=== PATIENT | female | born 1940 | race Caucasian/White ===

== ENCOUNTER → 2017-01-05 | Outpatient (CLI) | payer OTHER ==
[~2017-01-05] MED LIST: ALBU18002 INH; ALBU1AER9 INH; ASPI325T45 PO; ATOR10TA82 PO; B-CO1CAP17 PO; BTH25 PO; CHOL2000 PO; CHOL20009 PO; CLC6 PO; GABA-113 PO; HYDR-5688 PO; IBUP-1050 PO; NORT25CA PO; ONDA4TAB10 SL; ONDA4TAB46 PO; PRED-301 PO; RST/30 PO; SYMIN160 INH; TRAM-10 PO
== END | disposition home or self-care (01) ==
LOC: C.RDSM 07:35
PROVIDERS: ATTEND Physical Medicine & Rehabilitation Sports Medicine
DX: M65.342 Trigger finger, left ring finger (principal)

== ENCOUNTER → 2017-01-28 | Day surgery (SDC) | payer OTHER ==
[2017-01-12 12:38] VITALS: Ht 149.9 cm; Wt 66.4 kg
[~2017-01-28] VITALS: Ht 149.9 cm; Wt 66.4 kg
[~2017-01-28] MED LIST changes: -ALBU1AER9 INH; -ASPI325T45 PO; +ATROPINE SULFATE 0.1 MG/ML 5ML SYR IV PRN; +BUPIVACAINE/EPINEPHRINE 0.5% MPF 1:200,000 30 ML VIAL ONE; +CEFAZOLIN 1000MG/55 ML D5W IV SCH; -CHOL2000 PO; +EpHEDrine SULFATE INJ 50 MG/ML AMP IV PRN; +FENTANYL CITRATE INJ 50 MCG/1 ML 2 ML VIAL IV PRN; -GABA-113 PO; +HYDROCODONE/ACETAMOPHEN 5/325MG TAB PO PRN; +HYDROCORTISONE SOD SUCCINATE 100 MG/2 ML VIAL ONE; -IBUP-1050 PO; +LACTATED RINGER'S 1000ML 1,000 ML IV SCH; +LIDOCAINE HCL 1% 20 ML VIAL ONE; +LIDOCAINE/EPINEPHRINE 1% INJ 50 ML VIAL ONE; +MIDAZOLAM HCL 1 MG/ML 2ML VIAL ONE; -NORT25CA PO; -ONDA4TAB46 PO; +ONDANSETRON INJ 2 MG/ML 2 ML VIAL IV PRN; +PROPOFOL IV EMULSION 10 MG/ML 20 ML VIAL IV ONE; +SODIUM CHLORIDE 0.9% 1000ML 1,000 ML IV SCH; +TRAMADOL HCL 50 MG TAB PO PRN
--- NOTE | 2017-01-28 06:45 | History & Physical Bridge Note ---
H&P Re-Evaluation Bridge Note: I have examined the patient, reviewed the History & Physical and in the interval since the performance of the History & Physical I have noted the following changes of clinical significance: No changes noted
--- NOTE | 2017-01-28 07:15 | Discharge Instructions-SurgCtr ---
Discharge Instructions Date of Service January 28, 2017. Visit Reason for Visit: Left Ring Finger Trigger Digit Discharge Discharge Diagnosis / Problem: Left ring finger trigger digit Discharge Goals Goal(s): Decrease discomfort, Improve function, Increase independence Activity Recommendations Activity Limitations: per Instructions/Follow-up section Anesthesia . Post Anesthesia Instructions: If you have had General Anesthesia or IV Sedation: * Do not drive today. * Resume driving when surgeon permits. * Do not make important decisions or sign legal documents today. * Call surgeon for: 1. Temperature elevations greater than 101 degrees F. 2. Uncontrollable pain. 3. Excessive bleeding. 4. Persistent nausea and vomiting. 5. Medication intolerance (nausea, vomiting or rash). * For nausea and vomiting use only clear liquids such as: tea, soda, bouillon until nausea subsides, then gradually increase diet as tolerated. * If you have any concerns or questions, call your surgeon's office. If physician is unavailable and it is an emergency, call 911 or go to the nearest emergency room. . Instructions / Follow-Up Instructions / Follow-Up The following are instructions to follow after minor hand surgery. ACTIVITY RECOMMENDATIONS: * Minimize activity until your first visit after surgery. * No excessive walking, jogging, sports or laboring. * Return to activity is individualized. Most patients are able to return to everyday activities within 2 weeks. * Return to sports or intensive labor usually occurs at 1-2 months. * DRIVING: Driving may be resumed when you feel you have adequate pain control and use of the hand. * BATHING: You may shower or sponge-bathe immediately after surgery. The dressing will need to be covered with a plastic bag or plastic wrap until the dressing is changed on the fourth or fifth day after surgery. Once the dressing has been changed on the fourth or fifth day after surgery, you may shower and get the incision wet. * Wash with regular soap and water. * Do not bathe (submerge the incision), soak, swim or use a hot tub until the incision is completely healed over with normal skin and the doctor has given the OK to proceed. * There is no need to apply any ointments, powders or salves to your incision. * Do not apply alcohol or hydrogen peroxide directly to the incision. Diluted peroxide (50:50 mixture with sterile saline) may be used to clean dried blood from around the incision area. WORK/SCHOOL: * You may return to sedentary work or school when you are feeling comfortable. This is usually 3-7 days after surgery. * Expect increased discomfort with increased activity. Continue to elevate and ice the hand as much as possible. DIET: * Resume previous diet. MEDICATIONS: * You will have a prescription for pain medication and an anti-inflammatory medication after surgery. Use the pain pills for severe pain and the anti-inflammatory for less severe pain. * Once the pain pills have run out, try to use the anti-inflammatory. If this is not effective then contact the office for assistance. * The pain medication may cause nausea, constipation and sleepiness. You should see how they affect you before driving or similar activity. * The anti-inflammatory may cause stomach upset and bleeding. If this occurs, let your doctor know immediately . * Some patients may need blood clot prevention. This can be done with either a pill or a simple shot. Your doctor will advise you on when to begin these medications and how to take them. * Do not take aspirin or other anti-inflammatory products (i.e. Advil or Aleve ) if taking blood thinner medication. * Take a stool softener like Colace or a stimulant like Senokot to prevent constipation. SPECIAL CARE INSTRUCTIONS: ICE: * Do not apply ice directly to the skin. * Use a thin dressing or stockinet between the skin and ice bag. The dressing in place after surgery will suffice. * Apply ice for 20-30 minutes and repeat every 2-4 hours. This is especially important for the first 3-7 days after surgery. * Once the pain improves, use ice as needed. ELEVATION: * Keep your hand elevated at or above the level of your heart as much as possible. * Expect some increased discomfort and swelling if you allow your hand to hang down for any length of time. DRESSING: * Your dressing will be changed 4-5 days after surgery by the physical therapist or physician's patient assistant. Leave your dressing intact until this time. * You may then change your dressing daily with clean dry gauze or Band-aids and a soft wrap or stockinet. * Always wash your hands prior to touching the incision area. * Once the stitches are removed, you may leave the wound open to air or cover with a thin bandage. * There is no need to apply any ointments, powders or salves to your incision. * Expect some bloody drainage for the first few days after surgery. * Leave the tape strips in place (if present) for 5-7 days. * The initial dressing after surgery may become soaked with blood or fluid which is normal. You may reinforce your dressing with clean, dry gauze as needed. BRACE: * Bracing is generally not needed after routine hand surgery. THERAPY: * Physical therapy may be prescribed after your surgery. * For carpal tunnel and trigger digit surgery you may begin moving your fingers and wrist immediately after surgery as tolerated. * Be careful to not overuse. * Once the sutures are removed, further range of motion exercises can be performed. * Hand incisions may be very sensitive for a few months after surgery so avoid excessive pressure on the incision. If necessary, use a padded weightlifters' glove. * You may massage the incision with skin cream to make it less sensitive and reduce scarring. * Hand strength usually returns with normal use. * If needed, squeezing a soft sponge or Play-dough may help. * Your doctor will recommend physical therapy if necessary. PROBLEMS/QUESTIONS: * If you have any problems such as severe pain, numbness, tingling or high fevers or if you have any questions, please contact the office at [phone]. * It is not uncommon to have some numbness and tingling after the surgery especially if you have had a nerve block done. This should gradually improve over the first 1- 2 days. If this persists longer or worsens then contact the office. FOLLOW UP VISIT: * If not already scheduled, please call the office at to schedule follow-up appointments for approximately 10 days, 6 weeks and 3 months after surgery. * You have a follow up appointment on 02/02/17 at 9:00 a.m. at [facility]. * You have a follow up appointment with Dr. Levin on 02/10/17 at 1:00 p.m. Diet Recommendations Home Diet: no limitations, resume previous diet Pending Studies Studies pending at discharge: no Medical Emergencies . Who to Call and When: Medical Emergencies: If at any time you feel your situation is an emergency, please call 911 immediately. . Non-Emergent Contact Non-Emergency issues call your: Surgeon Call Non-Emergent contact if: temperature is above 101, your pain is not controlled, your pain is concerning you, wound has increased drainage, you have any medication questions . . "Provider Documentation" section prepared by Betzy Pollard. . [place] Drug Monitoring Program Search Results: patient reviewed within database, no issues identified
--- NOTE | 2017-01-28 07:34 | [facility] Post Operative Brief Note ---
Immediate Operative Summary Operative Date January 28, 2017. Pre-Operative Diagnosis Left Trigger Finger Digit Post-Operative Diagnosis Same Procedure(s) Performed Left Ring Trigger Digit Release Surgeon Dr. Collette Levin After School Counselor Surgeon(s) May Mcnulty Estimated Blood Loss 0 Findings fraying of superficialis tendon Specimens None Drains 0 Anesthesia local with IV sedation Complication(s) None Disposition Recovery Room / PACU
[2017-01-28 07:35] VITALS: TEMP 36.3
--- NOTE | 2017-01-28 08:07 | Anesthesia Progress Nt - [facility] ---
Anesthesia Post Op Note Date & Time January 28, 2017 at 08:08 Vital Signs Pain Intensity: 0 Vital Signs Past 12 Hours Date Time Temp Pulse Resp B/P Pulse Ox O2 Delivery O2 Flow Rate FiO2 01/28/17 07:35 36.3 81 16 112/73 97 Room Air 01/28/17 06:24 36.4 69 16 148/70 97 Room Air Notes Mental Status: alert / awake / arousable, participated in evaluation Pt Amnestic to Procedure: Yes Nausea / Vomiting: adequately controlled Pain: adequately controlled Airway Patency, RR, SpO2: stable & adequate BP & HR: stable & adequate Hydration State: stable & adequate Anesthetic Complications: no major complications apparent
[2017-01-28 08:11] VITALS: BP 138/68; PULSE 71; O2SAT 98
--- NOTE | 2017-01-28 08:23 | OPERATIVE REPORT ---
DATE OF OPERATION: 01/28/2017 PREOPERATIVE DIAGNOSIS: Left ring finger trigger digit. POSTOPERATIVE DIAGNOSIS: Same. PROCEDURE: Left ring finger trigger digit release. SURGEON: Dr. Levin. QUANTITATIVE ASSOCIATE: Dr. Blake Alexander. No PA available. ANESTHESIA: Local with IV sedation. INDICATIONS OF PROCEDURE: The patient is a 76-year-old female with a symptomatic left ring finger trigger digit refractory to nonsurgical methods of management. OPERATION AND FINDINGS: PROCEDURE IN DETAIL: Informed consent was obtained. The patient identified as Lisbet Patterson. She identified the operative site as the left hand ring finger. I marked it with my initials. A preop surgical time out was performed. A preop dose of IV antibiotics was given. She was taken to the operating room, positioned supine on the hospital stretcher. The hand was positioned on a hand table. A tourniquet was applied to the left upper arm. 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 I did not palpate any notable nodule at the level of the A1 bettye on the ring finger. I could not get her to passively trigger. Local anesthetic 1% lidocaine with epinephrine and 0.5% Marcaine with epinephrine was injected for a digital block. The hand was then prepped and draped in usual sterile fashion. DVT prophylaxis was not indicated. She received a preoperative dose of IV antibiotics. The limb was exsanguinated with the Esmarch, tourniquet inflated to 225 mmHg. A transverse incision was made overlying the fourth ray at the level of the distal transverse palmar crease. Blunt dissection was performed down through the skin and subcutaneous tissues. The superficial palmar fascia was divided. The tendon was identified and subsequent to that the opening of the A1 bettye. Dissection was performed on the volar aspect of the A1 bettye. The A1 bettye was not notably thickened or obviously stenotic. The bettye was then released in longitudinal fashion in line with the tendon. Underneath the A1 bettye it was noted that there was fraying of the superficialis tendon. There was a small area which would have corresponded right to the level of the A1 bettye where there was some degenerated bunched up tendon fibers a couple millimeters in diameter which was debrided. There was some longitudinal degenerative striations within the tendon distal to this. No cysts or masses were encountered. The profundus tendon looked normal. The wound was irrigated and closed with 4-0 nylon interrupted horizontal mattress stitches. A soft sterile dressing was applied. The tourniquet was let down after approximately 10 minutes of inflation. The patient was awakened from anesthesia without difficulty and taken to the recovery room in stable condition. There were no specimens or complications. Counts were correct at the end of case. Blood loss was minimal. At the conclusion of the operation, I spoke to the patient's and informed him of my findings. Postoperative instructions were given. She will be treated according to our trigger digit pathway. She can do early active range of motion and will be in next week for dressing change and wound check. I attest to the content of the Intraoperative Record and any orders documented therein. Any exceptio ns are noted below.
== END | disposition home or self-care (01) ==
LOC: X.SURG 06:03
PROVIDERS: ATTEND Physical Medicine & Rehabilitation Sports Medicine
DX: M65.342 Trigger finger, left ring finger (principal); E78.00 Pure hypercholesterolemia, unspecified; J45.909 Unspecified asthma, uncomplicated; M19.90 Unspecified osteoarthritis, unspecified site; K44.9 Diaphragmatic hernia without obstruction or gangrene; M06.9 Rheumatoid arthritis, unspecified; Z90.49 Acquired absence of other specified parts of digestive tract; Z96.653 Presence of artificial knee joint, bilateral; Z90.710 Acquired absence of both cervix and uterus